=== PATIENT | male | born 1955 | race Caucasian/White ===

== ENCOUNTER 2020-09-27 10:58 | Emergency (ER) | payer OTHER ==
[~2020-09-27] VITALS: Ht 167.6 cm; Wt 89.0 kg
[2020-09-27 11:57] LABS: BASOPHILS % 0.7 % (0.0-2.0); EOSINOPHILS % 1.3 % (0.0-5.0); HEMATOCRIT. 30.9 % (42.0-52.0); HEMOGLOBIN. 10.9 g/dL (14.0-18.0); LYMPHOCYTES % 18.4 % (20.0-50.0); MEAN CORPUSCULAR HEMOGLOBIN 30.7 pg (28.0-32.0); MEAN CORPUSCULAR VOLUME 86.7 fL (80.0-94.0); MEAN PLATELET VOLUME 8.2 fl (7.4-10.4); MONOCYTES % 7.4 % (2.0-8.0); NEUTROPHILS % 72.2 % (40.0-76.0); PLATELET 313 x1000/uL (130-400); RED BLOOD CELL COUNT 3.56 mill/uL (4.7-6.1); RED CELL DISTRIBUTION WIDTH 14.1 % (11.6-14.6)
[2020-09-27 12:01] LABS: CHLORIDE 104 mEq/L (98-107)
[2020-09-27 12:05] LABS: INR 1.1; PROTHROMBIN TIME 11.4 sec (9.6-11.0)
[2020-09-27 12:10] LABS: ETHANOL BLOOD < 10 mg/dL
[2020-09-27 13:44] LABS: CLARITY URINE TURBID (CLEAR); COLOR URINE YELLOW (YELLOW); KETONES URINE TRACE (NEGATIVE); LEUKOCYTE ESTERASE URINE 3+ (NEGATIVE); NITRITE URINE NEGATIVE (NEGATIVE); OCCULT BLOOD URINE 1+ (NEGATIVE); PH URINE 5.5 (4.5-8.0); PROTEIN URINE 2+ (NEGATIVE); SPECIFIC GRAVITY URINE 1.014 (1.005-1.030); UROBILINOGEN URINE 0.2 E.U./dL (0.2-1.0)
[2020-09-27] MEDS ORDERED: VISCOUS LIDOCAINE 2% 15 ML UDC MM STA (13:48)
[2020-09-27] MEDS ORDERED: CEFTRIAXONE 1 G PREMIX 50 ML IV ONE (14:00)
[2020-09-27] MEDS ORDERED: MAGNESIUM/ALUMINUM HYDROXIDE/SIMETHICONE 30ML UDC PO ONE (14:00)
[2020-09-27 15:14] LABS: *COCAINE SCREEN URINE NEGATIVE (NEGATIVE); METHADONE URINE SCREEN NEGATIVE (NEGATIVE)
[2020-09-27 15:15] LABS: *AMPHETAMINES SCREEN URINE NEGATIVE (NEGATIVE); *BARBITURATES SCREEN URINE NEGATIVE (NEGATIVE); CANNABINOID URINE SCREEN NEGATIVE (NEGATIVE); OPIATES URINE SCREEN NEGATIVE (NEGATIVE); PHENCYCLIDINE URINE SCREEN NEGATIVE (NEGATIVE)
[2020-09-27 15:16] LABS: *BENZODIAZEPINES SCREEN URINE NEGATIVE (NEGATIVE)
[2020-09-27 16:10] VITALS: BP 143/81
== END 2020-09-27 16:10 | disposition home or self-care (01) ==
LOC: ER 10:58
DX: K85.90 Acute pancreatitis without necrosis or infection, unspecified (principal); N39.0 Urinary tract infection, site not specified; I10 Essential (primary) hypertension; E11.9 Type 2 diabetes mellitus without complications; E78.00 Pure hypercholesterolemia, unspecified; Z86.19 Personal history of other infectious and parasitic diseases
CPT/HCPCS: 36415; 71045; 76700; 80053; 80305; 80320; 81003; 85025; 87077; 87186; 93005; 99285; G0480

== ENCOUNTER 2021-02-26 16:50 | Emergency (ER) | payer MEDICAID ==
[~2021-02-26] VITALS: Ht 165.1 cm; Wt 93.0 kg
[2021-02-26] MEDS ORDERED: VISCOUS LIDOCAINE 2% 15 ML UDC PO STA (17:36)
[2021-02-26] MEDS ORDERED: PANTOPRAZOLE SODIUM 40 MG/VIAL IV STA (17:36)
[2021-02-26] MEDS ORDERED: MAGNESIUM/ALUMINUM HYDROXIDE/SIMETHICONE 30ML UDC PO STA (17:36)
[2021-02-26 18:38] LABS: BASOPHILS % 1.1 % (0.0-2.0); EOSINOPHILS % 1.7 % (0.0-5.0); HEMATOCRIT. 33.3 % (42.0-52.0); HEMOGLOBIN. 12.1 g/dL (14.0-18.0); LYMPHOCYTES % 42.1 % (20.0-50.0); MEAN CORPUSCULAR HEMOGLOBIN 31.9 pg (28.0-32.0); MEAN CORPUSCULAR VOLUME 87.7 fL (80.0-94.0); MEAN PLATELET VOLUME 8.7 fl (7.4-10.4); MONOCYTES % 6.8 % (2.0-8.0); NEUTROPHILS % 48.3 % (40.0-76.0); PLATELET 277 x1000/uL (130-400); RED CELL DISTRIBUTION WIDTH 14.1 % (11.6-14.6)
[2021-02-26 18:43] LABS: PROTHROMBIN TIME 11.2 sec (9.6-11.0)
[2021-02-26 18:47] LABS: CLARITY URINE CLEAR (CLEAR); COLOR URINE YELLOW (YELLOW); KETONES URINE TRACE (NEGATIVE); LEUKOCYTE ESTERASE URINE 1+ (NEGATIVE); NITRITE URINE NEGATIVE (NEGATIVE); OCCULT BLOOD URINE NEGATIVE (NEGATIVE); PH URINE 5.5 (4.5-8.0); PROTEIN URINE 1+ (NEGATIVE); SPECIFIC GRAVITY URINE 1.016 (1.005-1.030); UROBILINOGEN URINE 0.2 E.U./dL (0.2-1.0)
[2021-02-26 20:33] LABS: CHLORIDE 110 mEq/L (98-107)
[2021-02-26] MEDS ORDERED: CEFTRIAXONE 1 G PREMIX 50 ML IV ONE (23:15)
[2021-02-27] MEDS ORDERED: DICY20TA11 MT (00:44)
[2021-02-27] MEDS ORDERED: CEPH250C2 MT (00:44)
[2021-02-27] MEDS ORDERED: PROT40 PO (00:44)
[2021-02-27 01:42] VITALS: BP 136/83
== END 2021-02-27 01:42 | disposition home or self-care (01) ==
LOC: ER 16:50
DX: N39.0 Urinary tract infection, site not specified (principal); R10.13 Epigastric pain; E78.00 Pure hypercholesterolemia, unspecified; I10 Essential (primary) hypertension; E11.9 Type 2 diabetes mellitus without complications; N40.0 Benign prostatic hyperplasia without lower urinary tract symptoms
CPT/HCPCS: 36415; 80053; 81003; 83690; 85025; 85610; 93005; 96365; 96375; 99285; C9113; J0696

== ENCOUNTER 2022-03-13 13:31 | Emergency (ER) | payer MEDICAID ==
[~2022-03-13] VITALS: Ht 167.6 cm; Wt 106.0 kg
[~2022-03-13 13:31] MED LIST: CEPH250C2 MT; DICY20TA2 MT; PROT40 PO
[2022-03-13 16:39] LABS: BASOPHILS % 0.5 % (0.0-2.0); CHLORIDE 104 mEq/L (98-107); EOSINOPHILS % 1.5 % (0.0-5.0); HEMATOCRIT. 34.4 % (42.0-52.0); HEMOGLOBIN. 12.2 g/dL (14.0-18.0); LYMPHOCYTES % 38.5 % (20.0-50.0); MEAN CORPUSCULAR HEMOGLOBIN 31.5 pg (28.0-32.0); MEAN PLATELET VOLUME 9.5 fl (7.4-10.4); MONOCYTES % 7.1 % (2.0-8.0); NEUTROPHILS % 52.4 % (40.0-76.0); PLATELET 267 x1000/uL (130-400); RED BLOOD CELL COUNT 3.87 mill/uL (4.7-6.1); RED CELL DISTRIBUTION WIDTH 13.5 % (11.6-14.6)
[2022-03-13 16:50] LABS: ETHANOL BLOOD < 10 mg/dL
[2022-03-13 16:52] LABS: CLARITY URINE CLEAR (CLEAR); COLOR URINE YELLOW (YELLOW); KETONES URINE NEGATIVE (NEGATIVE); LEUKOCYTE ESTERASE URINE NEGATIVE (NEGATIVE); NITRITE URINE NEGATIVE (NEGATIVE); OCCULT BLOOD URINE NEGATIVE (NEGATIVE); PH URINE 5.5 (4.5-8.0); PROTEIN URINE TRACE (NEGATIVE); SPECIFIC GRAVITY URINE 1.009 (1.005-1.030); UROBILINOGEN URINE 0.2 E.U./dL (0.2-1.0)
[2022-03-13 17:21] LABS: *AMPHETAMINES SCREEN URINE NEGATIVE (NEGATIVE); *BARBITURATES SCREEN URINE NEGATIVE (NEGATIVE); *BENZODIAZEPINES SCREEN URINE NEGATIVE (NEGATIVE); *COCAINE SCREEN URINE NEGATIVE (NEGATIVE); CANNABINOID URINE SCREEN NEGATIVE (NEGATIVE); METHADONE URINE SCREEN NEGATIVE (NEGATIVE); OPIATES URINE SCREEN NEGATIVE (NEGATIVE); PHENCYCLIDINE URINE SCREEN NEGATIVE (NEGATIVE)
[2022-03-13 20:00] VITALS: BP 129/79
== END 2022-03-13 20:06 | disposition home or self-care (01) ==
LOC: ER 13:53
DX: R33.9 Retention of urine, unspecified (principal); E78.00 Pure hypercholesterolemia, unspecified; I10 Essential (primary) hypertension; E11.9 Type 2 diabetes mellitus without complications; Z13.9 Encounter for screening, unspecified
CPT/HCPCS: 36415; 51702; 71045; 80053; 80305; 80320; 81003; 83880; 84484; 85025; 93005; 99285; A4315; G0480

== ENCOUNTER 2022-12-23 10:12 | Emergency (ER) | payer MEDICARE, MEDICAID ==
[~2022-12-23] VITALS: Ht 165.1 cm; Wt 93.0 kg
[2022-12-23] MEDS ORDERED: KETOROLAC 30MG/ML VIAL IM NR (12:45)
[2022-12-23 12:52] LABS: BASOPHILS % 0.5 % (0.0-2.0); EOSINOPHILS % 0.6 % (0.0-5.0); HEMATOCRIT. 36.6 % (42.0-52.0); HEMOGLOBIN. 12.8 g/dL (14.0-18.0); LYMPHOCYTES % 21.5 % (20.0-50.0); MEAN CORPUSCULAR HEMOGLOBIN 31.2 pg (28.0-32.0); MEAN CORPUSCULAR VOLUME 89.2 fL (80.0-94.0); MEAN PLATELET VOLUME 9.4 fl (7.4-10.4); MONOCYTES % 10.2 % (2.0-8.0); NEUTROPHILS % 67.2 % (40.0-76.0); PLATELET 251 x1000/uL (130-400); RED BLOOD CELL COUNT 4.11 mill/uL (4.7-6.1)
[2022-12-23 13:00] LABS: CHLORIDE 98 mEq/L (98-107)
[2022-12-23 13:24] VITALS: BP 122/85
[2022-12-23] MEDS ORDERED: CYCL5TAB PO (13:31)
[2022-12-23] MEDS ORDERED: NAPR-681 PO (13:31)
== END 2022-12-23 13:53 | disposition home or self-care (01) ==
LOC: ER 10:12
DX: M25.571 Pain in right ankle and joints of right foot (principal); M79.604 Pain in right leg; E11.9 Type 2 diabetes mellitus without complications; I10 Essential (primary) hypertension; E78.00 Pure hypercholesterolemia, unspecified
CPT/HCPCS: 36415; 73610; 80053; 85025; 93971; 96372; 99285; J1885